=== PATIENT | female | born 1960 | race Caucasian/White ===

== ENCOUNTER 2020-02-23 08:41 | Outpatient (CLI) | payer OTHER, SELFPAY ==
--- NOTE | 2020-02-23 08:50 | MM_ITS ---
WS: [id number] Bilateral screening digital mammogram, 02/23/2020 Clinical Data: SCREENING Comparison: 01/17/2019, 12/27/2017, 11/16/2016, 10/03/2015, 07/19/2006. Findings: The breast parenchymal pattern shows fat replacement. No spiculated masses or clustered calcification s are seen. There are no secondary signs of carcinoma. MM/[place] [id number] Impression: 1. Negative bilateral mammogram unchanged. 2. Recommend annual screening mammograms. BIRADS: 1-Negative FOLLOW UP: 1 Year Follow-up The CAD lap checker was used.
== END 2020-02-23 08:42 | disposition home or self-care (01) ==
LOC: RADSHAW 08:47
PROVIDERS: Family Provider Family Medicine; PCP Family Medicine; Visit Provider Family Medicine
DX: Z12.31 Encounter for screening mammogram for malignant neoplasm of breast (principal)
CPT/HCPCS: 77067

== ENCOUNTER → 2020-04-09 13:45 | Outpatient (BNVA) | payer OTHER, SELFPAY | PROVIDERS: Family Provider Family Medicine; PCP Family Medicine; Referring Provider Family Medicine; Visit Provider Podiatrist Foot & Ankle Surgery | DX: M79.672 Pain in left foot (principal); M20.12 Hallux valgus (acquired), left foot; M21.42 Flat foot [pes planus] (acquired), left foot | CPT/HCPCS: 73630 ==

== ENCOUNTER → 2020-05-25 13:27 | Outpatient (BNVA) | payer OTHER, SELFPAY | PROVIDERS: Family Provider Family Medicine; PCP Family Medicine; Visit Provider Podiatrist Foot & Ankle Surgery | DX: M21.612 Bunion of left foot (principal); Z11.52 Encounter for screening for COVID-19 | CPT/HCPCS: 87635 ==

== ENCOUNTER 2020-05-31 07:18 | Day surgery (SDC) | payer OTHER, SELFPAY ==
[2020-05-30 15:20] VITALS: BMI 29.7
[2020-05-31] VITALS (12 sets, daily range): BP systolic 103–151; BP diastolic 54–94; PULSE 63–90; RESP 16–21; TEMP 36.2–36.8; O2SAT 92–100
--- NOTE | 2020-05-31 | SCC_ITS ---
Procedure Done: Lapidus bunionectomy, Raymond osteotomy and second hammertoe repair all left foot. CPT codes 43823, 67826 and 42893 22 seconds of fluoroscopic guidance, for a cumulative dose of .38 mGy, was provided to Dr. Alba by the radiology department. C-arm images of the LEFT foot were saved for the patient's permanent record. [facility]
[2020-05-31] MEDS: sodium chloride 0.9% 500 ML 999 ML IV (08:13)
--- NOTE | 2020-05-31 09:22 | W.PM.OPSUD ---
Surgery/Procedure H&P Update DATE OF PROCEDURE: May 31, 2020 DATE H&P PERFORMED: 05/03/20 H&P UPDATE INFORMATION: I have reviewed H&P completed within last 30 days, I have examined patient prior to procedure, No changes to prior documentation and H&P is in [facility] EMR on date indicated PREOP DIAGNOSIS: Bunion and second hammertoe left foot PLANNED PROCEDURE: Operation Date: 05/31/20 09:05 Proposed Procedures p Bunionectomy Lapidus M21.612 [id number](Left) - Ciro Alba DPM s Second Hammertoe Correction repair all left foot(Left) - Ciro Alba DPM
--- NOTE | 2020-05-31 12:08 | XR_ITS ---
WS: [id number] Left foot, 3 views, 05/31/2020 Clinical Data: post op Comparison: Left foot, 04/09/2020. Findings: The patient is had an osteotomy of the base left first metatarsal with a medial plate fixed with mult iple screws to the first cuneiform and base of the left first metatarsal. There is an osteotomy of th e left first proximal phalanx with a small plate fixed with screws. There is a fusion of the left sec ond toe with an orthopedic pin. XR/XR foot LT min 3V* [id number] Impression: Post surgery changes for correction of bunion.
--- NOTE | 2020-05-31 12:16 | SUR.PHASEI ---
PT AWAKE ALERT TALKATIVE, LT FOOT DRESSING AND BOOT D/I DISTAL TOE PINK WARM CAP REFILL LESS THAN 3 SECONDS. PT ON RA TAKING ICE CHIPS DENIES PAIN . X RAY HERE, REGULAR ICE BAG BEHIND LT KNEE.
[2020-05-31] MEDS: ondansetron 2 mg/ML SDV 2 mL 4 MG IVP (13:32)
[2020-05-31] MEDS: scopolamine 1.5 Patch 1 PATCH TRANSDERMA (13:35)
[2020-05-31] MEDS: metoclopramide 5 mg/mL SDV 2 mL 10 MG IVP ×2 (14:00→14:20)
--- NOTE | 2020-05-31 14:34 | ANES.PREANE2 ---
Pre-Anesthetic Assessment Pre-Anesthetic Assessment: Height/Weight: Height 1.68 m Weight 83.461 kg Temp Pulse Resp BP Pulse Ox 97.2 F L 80 18 126/72 93 05/31/20 13:00 05/31/20 13:00 05/31/20 13:00 05/31/20 13:00 05/31/20 13:00 Preop Diagnosis: Bunion and second hammertoe left foot Proposed Procedure: Operation Date: 05/31/20 09:05 Proposed Procedures p Bunionectomy Lapidus M21.612 [id number](Left) - Ciro Alba DPM s Second Hammertoe Correction repair all left foot(Left) - Ciro Alba DPM Was Beta Pelon taken within 24 hours: N/A Last intake: Intake Last Liquid Date 05/30/20 Last Liquid Time 21:00 Last Solid Date 05/30/20 Last Solid Time 16:00 Social: Social History: Tobacco and No alcohol Exam: Pre-Anes Outpt Exam: alert, oriented x 3 and regular rate & rhythm Airway: Submandibular: WNL Cervical ROM: WNL MP: 2 GI: GI: GERD Anesthetic Plan: ASA status: 2 Anesthesia: MAC Risk of > 500 ml blood loss (7ml/kg in children): No Meds/Allergies Current Medications: Current Medications Generic Name Dose Route Start Last Admin Trade Name Freq PRN Reason Stop Dose Admin Sodium Chloride 500 mls @ 999 mls /hr 05/31/20 07:15 05/31/20 08:13 Sodium Chloride 0.9% IV 999 mls/hr .Q31M PRN Administration HYPOTENSION Metoclopramide HCl 10 mg 05/31/20 07:15 05/31/20 14:20 Metoclopramide 5 Mg/Ml Sdv 2 Ml IVP 06/01/20 07:15 10 mg Q5M PRN Administration Nausea unrelieved by Zofran Ondansetron HCl 4 mg 05/31/20 07:15 05/31/20 13:32 Ondansetron 2 Mg /Ml Sdv 2 Ml IVP 4 mg Q15M PRN Administration Nausea/Vomiting P ACU PHASE II PFSH Anesthesia PFSH: Medical History GERD (gastroesophageal reflux disease) History of Bullard's palsy Hot flashes Family History Denies family history of Diabetes CAD (coronary artery disease) Clotting disorder Dementia Hyperlipidemia Psychiatric illness Chronic kidney disease (CKD) Suicide Anesthesia complication Bleeding disorder Family history of premature coronary artery disease Lung disease Cancer Hypertension Stroke Social History Smoking and tobacco status: former smoker Alcohol intake: current Alcohol intake frequency: few times a month Lives independently: Yes Household members: spouse Marital status: Life Partner Data Anesthesia Cardiac Studies: No Data to Display
--- NOTE | 2020-05-31 14:36 | ANE.PACU2 ---
Inpatient post-anesthesia follow up: Airway intact: Yes Vital signs: Temperature 97.2 F Pulse Rate 80 Respiratory Rate 18 Blood Pressure 126/72 Pulse Oximetry 93 Oxygen Delivery Me thod Room Air Oxygen Flow Rate 8 Fraction of Inspir ed Oxygen Hydration adequate: Yes Nausea and vomiting: No Pain level: 1 Mental status: Baseline
[2020-05-31] MEDS: oxyCODONE-APAP 10-325 mg Tablet 1 TAB PO (14:38)
--- NOTE | 2020-05-31 18:42 | PM.OP ---
Operative Report Date of procedure: May 31, 2020 Pre-op Diagnosis: Bunion and second hammertoe left foot Post-op diagnosis: same Procedure Done: Lapidus bunionectomy, Raymond osteotomy and second hammertoe repair all left foot. CPT codes 22187, 70524 and 62135 Implants: [place] 28 Lapidus plate, [place] 28 3.5 mm locking and nonlocking screws, [place] 2810 mm nitinol step-off stable, [place] 28 2.75 mm hammer tube 0 degree. 3-0 Vicryl, 4-0 Vicryl 4-0 nylon. Specimens removed/disposition: None Pathology: none sent Surgeon: Ciro Alba D.P.M. Food Selector: See intraop documentation Anesthesia: MAC Estimated blood loss: 10ml Tourniquet time: See [id number] documentation IV fluids: none Urine output: none Complications: none Findings: none Condition: stable Disposition: PACU Brief History: Patient is a pleasant 59-year-old female who complains of left bunion and left second hammertoe pain. She has had pain that has been progressive in nature and increased with activity such as walking and everyday activities especially while at work. She has significant pain at her bunion site that is debilitating and prevents her from enjoying everyday activities. She would like to discuss surgical treatment options and proceed with this at today's visit. I am recommending a Lapidus bunionectomy, Raymond osteotomy and second hammertoe repair of the left foot. Risks include pain, bleeding, numbness, infection, painful scar, chronic swelling, delayed union, malunion, nonunion, painful retained hardware, hardware failure, hardware irritation, damage to adjacent soft tissue structures, hallux varus, need for further surgical intervention. Also risks associated with anesthesia, DVT, PE, heart attack and stroke. Patient is interviewed preoperatively and answered all questions to her satisfaction. Informed consent is signed by myself and patient I initialed patient's left foot she wishes to proceed. Procedure: Under mild sedation the patient was brought to the operating room and placed on operating table in supine position. A timeout was performed. Anesthesia was administered by the anesthesia service. Local anesthesia injected by myself consisting of a left ankle block utilizing 0.5% Marcaine plain total of 20 cc. Well-padded pneumatic tourniquet applied to the left ankle. Left lower extremity was then scrubbed, prepped and draped utilizing normal aseptic technique. Left foot was examined a weighted with an Esmarch bandage and the tourniquet inflated to 250 mmHg. Attention was directed to the dorsal medial aspect of the left first metatarsal where a linear longitudinal incision was made medial and parallel to the extensor houses longus tendon at the level of the base of the first metatarsal this was approximately 7 cm in length. Dissection was carried down through subcu tissue and fat layer down to periosteum. Linear periosteal incision was made in the first metatarsal medial cuneiform joint was distracted with self-retaining distractor and denuded of articular surface at the distal aspect of the medial cuneiform and base of the first metatarsal. This was done with a sagittal saw and wafers were passed from the operative field. Subchondral drilling was performed utilizing a subchondral drill bit, but deformity was reduced with improved intermetatarsal angle as well as the rotated in the frontal plane this was temporally fixated and utilizing standard AO technique a [place] 28 Lapidus plate was utilized to fixate the arthrodesis site with excellent bony apposition and compression noted utilizing a combination of locking and nonlocking 3.5 mm [place] 28 screws. Incision site was flushed with copious amounts of sterile saline solution. Intraoperative fluoroscopy confirmed reduced intermetatarsal angle and improved sesamoid position and excellent placement of orthopedic hardware without violating surrounding/neighboring joints. Periosteum was reapproximated utilizing 2-0 Vicryl. Subcutaneous tissue closed utilizing 4-0 Vicryl and skin closed utilizing 4-0 nylon. Attention was then directed to the first interspace where a stab incision was made and a lateral release was carried out with a #15 blade. Medial incision was then performed to perform a silver procedure at the first metatarsal head this was transected and passed from the operative field, dissection was then carried down to the medial aspect of the hallux where an Raymond osteotomy was performed with a sagittal saw maintaining a lateral hinge and cortex this was then reduced and fixated utilizing a [place] 28 10 mm step-off staple with excellent bony apposition and compression noted at the Raymond osteotomy site and a more rectus hallux appreciated intraoperatively. Incision sites were flushed with copious amounts of sterile saline solution. First interspace incision closed utilizing 4-0 nylon. Medial capsule was debulked and closed utilizing 3-0 Vicryl in the subcutaneous closed utilizing 4-0 Vicryl and skin 4-0 nylon. Attention was then directed to the dorsal aspect of the left digit where a linear longitudinal incision made at the level of the proximal interphalangeal joint. Extensor tendon was transected and the head of the proximal phalanx and base of the intermediate phalanx were denuded of the articular surface. Utilizing director of business operations recommendations a [place] 28 2.75 mm hammer tube 0 degree was inserted and fixated with a K wire through the implant for additional stability. K wire was bent 90 degrees and a Trina ball was applied. Intraoperative fluoroscopy utilized to confirm a rectus second toe with excellent bony apposition and compression noted at the arthrodesis site. Incision site was flushed with saline solution. Extensor tendon reapproximated utilizing 4-0 Vicryl and skin reapproximated utilizing 4-0 nylon. Incision sites were then dressed with Adaptic, sterile 4 x 4, Kerlix and Shankar wrap. Boot was applied to the left lower extremity. Tourniquet was deflated and a prompt hyperemic response was noted to the distal digits of the left foot. Patient tolerated the procedure and anesthesia well and was transferred to the PACU with vital signs stable and vascular status intact. Following a period of postoperative monitoring she will be discharged home is to remain strict nonweightbearing I reemphasized this multiple times. She is to keep the cam boot on and her dressing clean dry and intact until follow-up visit. Was prescribed pain medication to be taken judiciously as needed for pain and myself a number should she have any postoperative complications or concerns she is to reach out to me.
== END 2020-05-31 15:10 | disposition home or self-care (01) ==
PROVIDERS: PCP Family Medicine; Visit Provider Podiatrist Foot & Ankle Surgery
PROC: (CPT 28297; principal; 2020-05-31 09:05)
PROC: (CPT 28285; 2020-05-31 09:05)
DX: M21.612 Bunion of left foot (principal); M20.42 Other hammer toe(s) (acquired), left foot; Z87.891 Personal history of nicotine dependence
CPT/HCPCS: 28285; 28297; 28298; 73630; 76000; 96374; 96375; C1713; C9290; J0690; J2250; J2370; J2405; J2704; J2765; J3010; J3490; J7040; L4361

== ENCOUNTER → 2020-06-13 13:11 | Outpatient (BNVA) | payer OTHER, SELFPAY | PROVIDERS: PCP Family Medicine; Visit Provider Podiatrist Foot & Ankle Surgery | DX: Z47.89 Encounter for other orthopedic aftercare (principal); M21.612 Bunion of left foot | CPT/HCPCS: 73630 ==

== ENCOUNTER → 2020-06-28 13:21 | Outpatient (BNVA) | payer OTHER, SELFPAY | PROVIDERS: PCP Family Medicine; Visit Provider Podiatrist Foot & Ankle Surgery | DX: Z48.89 Encounter for other specified surgical aftercare (principal); M21.612 Bunion of left foot | CPT/HCPCS: 73630 ==

== ENCOUNTER → 2020-07-12 13:10 | Outpatient (BNVA) | payer OTHER, SELFPAY | PROVIDERS: PCP Family Medicine; Visit Provider Podiatrist Foot & Ankle Surgery | DX: Z48.89 Encounter for other specified surgical aftercare (principal) | CPT/HCPCS: 73630 ==

== ENCOUNTER → 2020-07-29 10:20 | Outpatient (BNVA) | payer OTHER, SELFPAY | PROVIDERS: PCP Family Medicine; Visit Provider Podiatrist Foot & Ankle Surgery | DX: Z48.89 Encounter for other specified surgical aftercare (principal) | CPT/HCPCS: 73630 ==

== ENCOUNTER → 2020-08-12 13:06 | Outpatient (BNVA) | payer OTHER, SELFPAY | PROVIDERS: PCP Family Medicine; Visit Provider Podiatrist Foot & Ankle Surgery | DX: Z48.89 Encounter for other specified surgical aftercare (principal); M85.872 Other specified disorders of bone density and structure, left ankle and foot; R60.0 Localized edema | CPT/HCPCS: 73630 ==

== ENCOUNTER → 2020-08-30 12:38 | Outpatient (BNVA) | payer OTHER, SELFPAY | PROVIDERS: PCP Family Medicine; Visit Provider Podiatrist Foot & Ankle Surgery | DX: Z48.89 Encounter for other specified surgical aftercare (principal); Z98.890 Other specified postprocedural states | CPT/HCPCS: 73630 ==

== ENCOUNTER → 2020-10-04 13:12 | Outpatient (BNVA) | payer OTHER, SELFPAY | PROVIDERS: PCP Family Medicine; Visit Provider Podiatrist Foot & Ankle Surgery | DX: Z48.89 Encounter for other specified surgical aftercare (principal); Z98.890 Other specified postprocedural states; M21.612 Bunion of left foot | CPT/HCPCS: 73630 ==

== ENCOUNTER → 2020-11-05 13:31 | Outpatient (BNVA) | payer OTHER, SELFPAY | PROVIDERS: PCP Family Medicine; Visit Provider Podiatrist Foot & Ankle Surgery | DX: Z48.89 Encounter for other specified surgical aftercare (principal); Z98.890 Other specified postprocedural states; M21.612 Bunion of left foot | CPT/HCPCS: 73630 ==

== ENCOUNTER 2020-11-05 13:57 | Outpatient (CLI) | payer OTHER, SELFPAY | END 2020-11-05 13:58 | disposition home or self-care (01) | LOC: SPT 13:58 | PROVIDERS: PCP Family Medicine; Visit Provider Podiatrist Foot & Ankle Surgery | DX: Z98.890 Other specified postprocedural states (principal) | CPT/HCPCS: L3030 ==

== ENCOUNTER → 2020-12-10 13:15 | Outpatient (BNVA) | payer OTHER, SELFPAY | PROVIDERS: PCP Family Medicine; Visit Provider Podiatrist Foot & Ankle Surgery | DX: M79.672 Pain in left foot (principal); Z48.89 Encounter for other specified surgical aftercare; Z98.890 Other specified postprocedural states; M21.612 Bunion of left foot | CPT/HCPCS: 73630 ==

== ENCOUNTER → 2021-01-14 13:59 | Outpatient (BNVA) | payer OTHER, SELFPAY | PROVIDERS: PCP Family Medicine; Visit Provider Podiatrist Foot & Ankle Surgery | DX: Z98.890 Other specified postprocedural states (principal) | CPT/HCPCS: 73630 ==

== ENCOUNTER → 2021-02-25 13:44 | Outpatient (BNVA) | payer OTHER, SELFPAY | PROVIDERS: PCP Family Medicine; Visit Provider Podiatrist Foot & Ankle Surgery | DX: Z98.890 Other specified postprocedural states (principal); M21.612 Bunion of left foot; L60.3 Nail dystrophy; Z48.89 Encounter for other specified surgical aftercare | CPT/HCPCS: 73630 ==

== ENCOUNTER → 2021-03-03 10:54 | Outpatient (BNVA) | payer OTHER, SELFPAY | PROVIDERS: PCP Family Medicine; Visit Provider Podiatrist Foot & Ankle Surgery | DX: Z01.818 Encounter for other preprocedural examination (principal); Z20.822 Contact with and (suspected) exposure to COVID-19 | CPT/HCPCS: 87635 ==

== ENCOUNTER 2021-03-07 05:33 | Day surgery (SDC) | payer OTHER, SELFPAY ==
[2021-03-06 16:36] VITALS: BMI 29.7
[2021-03-07] VITALS (8 sets, daily range): BP systolic 92–153; BP diastolic 62–106; PULSE 50–60; RESP 16–18; TEMP 36.2–36.5; O2SAT 90–97
--- NOTE | 2021-03-07 | SCC_ITS ---
Procedure Done: Deep Hardware Removal and Resection of Nonunion Left Foot [id number] 9 seconds of fluoroscopic guidance, for a cumulative dose of 0.12 mGy, was provided to Dr. Alba by the radiology department. C-arm images of the LEFT foot were saved for the patient's permanent record. [facility]
--- NOTE | 2021-03-07 06:11 | P.HPUD_ITS ---
Surgery/Procedure H&P Update DATE OF PROCEDURE: March 07, 2021 DATE H&P PERFORMED: 03/07/21 H&P UPDATE INFORMATION: I have reviewed H&P completed within last 30 days, I have examined patient prior to procedure, No changes to prior documentation and H&[place] is in [facility] [place] on date indicated PREOP DIAGNOSIS: Painful retained hardware and nonunion left foot PLANNED PROCEDURE: Operation Date: 03/07/21 07:00 Proposed Procedures p Deep Hardware Removal and Resection of Nonunion Left Foot [id number] M96.0 M79.672(Left) - Ciro Alba DPM
[2021-03-07] MEDS: scopolamine 1.5 Patch 1 PATCH TRANSDERMA (06:17)
[2021-03-07] MEDS: sodium chloride 0.9% 1,000 ML 30 ML IV (06:37)
--- NOTE | 2021-03-07 06:44 | PM.OPSURHP ---
Providers/Chief Complaint Primary Care Provider: Christofer Granado DO Chief Complaint: Nonunion, Pain in Left Foot History of Present Illness Michelle Johnson is a 60 year old female Established 60 year old female patient here at clinic for post operative care. Patient had a Lapidus bunionectomy. DOS . Postoperative course has been complicated by delayed bony healing and dorsal angulation of the first metatarsal. Patient received her bone stimulator on 12/28/20. She is here for preop H&P and proceed with surgery has been n.p.o. since midnight. Review of Systems General: Reports: 10 or more systems reviewed and unremarkable except in HPI and below Const: Denies: fever(s) or chills Eyes: Denies: change in vision Card: Denies: chest pain or palpitations Resp: Denies: dyspnea or productive cough GI: Denies: abdominal pain, nausea or vomiting : Denies: flank pain Musc: Reports: extremity pain, extremity swelling and deformity Skin/Breast: Reports: surgical incision; Denies: rash Neuro: Denies: numbness in extremities, sensory changes or frequent falls Psych: Denies: suicidal ideation Sg/Lymph: Denies: easy bruising Medications/Allergies Home Medications Medication Instructions Recorded Confirmed Last Taken Type fluoxetine 20 mg capsule 20 mg PO DAILY 04/09/20 03/06/21 05/31/20 06:00 History naproxen 375 mg tablet 375 mg PO DAILY PRN 04/09/20 03/07/21 03/06/21 History Centrum Silver Women 1 tab PO DAILY 05/30/20 03/06/21 Unknown History Probiotic 1 cap PO DAILY 05/30/20 03/06/21 Unknown History cholecalciferol (vitamin D3) 50 mcg PO DAILY 05/30/20 03/06/21 Unknown History [Vitamin D3] doxylamine succinate 25 mg PO BEDTIME 05/30/20 03/06/21 Unknown History esomeprazole magnesium [Nexium] 20 mg PO DAILY 05/30/20 03/07/21 03/07/21 History lysine 500 mg PO DAILY 05/30/20 03/06/21 Unknown History melatonin 5 mg PO DAILY 05/30/20 03/06/21 Unknown History ibuprofen 800 mg tablet 800 mg PO TID PRN #30 tab 06/28/20 03/06/21 Unknown Rx Custom Orthotics #1 ea 08/12/20 02/25/21 Unknown Rx Bone Stimulator #1 ea 08/30/20 02/25/21 Unknown Rx tramadol 50 mg tablet 50 mg PO Q4H PRN 7 Days #42 tab 01/14/21 03/06/21 Unknown Rx calcium 500 mg PO DAILY 03/06/21 03/06/21 Unknown History Allergies Allergy/AdvReac Type Severity Reaction Status Date / Time No Known Allergies Allergy Verified 02/25/21 13:42 PFSH PFSH: Medical History GERD (gastroesophageal reflux disease) History of Bullard's palsy Hot flashes Family History Denies family history of Diabetes CAD (coronary artery disease) Clotting disorder Dementia Hyperlipidemia Psychiatric illness Chronic kidney disease (CKD) Suicide Anesthesia complication Bleeding disorder Family history of premature coronary artery disease Lung disease Cancer Hypertension Stroke Social History Alcohol intake: current Alcohol intake frequency: few times a month Lives independently: Yes Household members: spouse Marital status: Life Partner Vital Signs Vitals Signs: Last Vital Signs Temp 97.7 F 03/07/21 05:57 Pulse 60 03/07/21 05:57 Resp 18 03/07/21 05:57 BP 153/71 03/07/21 05:57 Pulse Ox 97 03/07/21 05:57 Weight: Weight last 48 hrs Weight 184 lb Physical Exam Narrative: EXAM NARRATIVE: Patient is alert and oriented ?3 and in no acute distress. The following is a focused left lower extremity exam. VASCULAR: Dorsalis pedis and posterior tibial arteries palpable +2. Capillary refill time less than 3 seconds to the distal hallux bilaterally. Calf is supple and nontender proximally and distally. Edema at the left midfoot. NEUROLOGICAL: Protective sensation intact to light touch. DERMATOLOGICAL: Well healed cicatrix left foot. Edema to left foot. No dehiscence or erythema. MUSCULOSKELETAL: Tenderness at the Lapidus arthrodesis site. Muscle strength 5 out of 5 in all 3 cardinal planes to the left foot and ankle. No pain with posterior calf squeeze. CARDIOVASCULAR: S1, S2, normal rate, normal rhythm. Dorsalis pedis and posterior tibial arteries palpable. LUNGS: Clear to auscltation, no use of acessory muscles, no crackles or wheezes. A&P Assessment and plan (1) Left foot pain: Status: Acute (2) Nonunion of joint fusion: Status: Acute (3) Bunion, left: Status: Acute Reviewed x-ray findings with the patient at length, there is a nonunion at the left Lapidus site. She has utilized a bone stimulator has been used since 12/28/20. Wearing supportive shoes and custom functional orthotics. I discussed the risk for nonunion of this type of a procedure is approximately 10%. Recommending a revision as she is symptomatic with her nonunion has pain with increased activity. This would entail hardware removal, resection of nonunion, would implement Ortho Biologics and revisional plate with locking screws. This is something she potentially would like to have done next Wednesday, March 07, 2021. Covid screening negative. Patient has been n.p.o. since midnight. Wishes to proceed. Coding Level of Care Code Acute Pastry Cook Apprentice for Suha Wall Diagnoses Left foot pain M79.672 Nonunion of joint fusion Bunion, left M21.612
--- NOTE | 2021-03-07 07:08 | ANES.PREANE2 ---
Pre-Anesthetic Assessment Pre-Anesthetic Assessment: Height/Weight: Height 1.68 m Weight 83.461 kg Temp Pulse Resp BP Pulse Ox 97.7 F 60 18 153/71 97 03/07/21 05:57 03/07/21 05:57 03/07/21 05:57 03/07/21 05:57 03/07/21 05:57 Preop Diagnosis: Painful retained hardware and nonunion left foot Proposed Procedure: Operation Date: 03/07/21 07:00 Proposed Procedures p Deep Hardware Removal and Resection of Nonunion Left Foot [id number] M96.0 M79.672(Left) - Ciro Alba DPM Was Beta Pelon taken within 24 hours: N/A Was Clonidine taken within 24 hours: N/A Last intake: Intake Last Liquid Date 03/06/21 Last Liquid Time 17:00 Last Solid Date 03/06/21 Last Solid Time 15:00 Social: Social History: No alcohol and No tobacco Exam: Pre-Anes Outpt Exam: alert, oriented x 3, clear to auscultation bilaterally and regular rate & rhythm Airway: Submandibular: WNL Cervical ROM: WNL MP: 2 Dentition: Full GI: GI: GERD Neuropsych: Neuropsych: Anxiety and Depression Anesthetic Plan: ASA status: 2 Anesthesia: Choice Other: PONV Risk of > 500 ml blood loss (7ml/kg in children): No Meds/Allergies Current Medications: Current Medications Generic Name Dose Route Start Last Admin Trade Name Freq PRN Reason Stop Dose Admin Sodium Chloride 1,000 mls @ 30 ml s/hr 03/07/21 05:45 03/07/21 06:37 Sodium Chloride 0.9% IV 03/08/21 05:44 30 mls/hr .Q24H SHANTELLE Administration PFSH Anesthesia PFSH: Medical History GERD (gastroesophageal reflux disease) History of Blulard's palsy Hot flashes Family History Denies family history of Diabetes CAD (coronary artery disease) Clotting disorder Dementia Hyperlipidemia Psychiatric illness Chronic kidney disease (CKD) Suicide Anesthesia complication Bleeding disorder Family history of premature coronary artery disease Lung disease Cancer Hypertension Stroke Social History Alcohol intake: current Alcohol intake frequency: few times a month Lives independently: Yes Household members: spouse Marital status: Life Partner Data Anesthesia Cardiac Studies: No Data to Display
--- NOTE | 2021-03-07 08:45 | P.OP_ITS ---
Operative Report Date of procedure: March 07, 2021 Pre-op Diagnosis: Painful retained hardware and nonunion left foot Post-op diagnosis: same Procedure Done: Deep Hardware Removal and Resection of Nonunion Left Foot [id number] Implants: [place] 28 locking Lapidus plate with 3.5 millimeter screws, [place] 28 4 mm headless screw, Exparel, 3-0 Vicryl, 4-0 Vicryl and 4-0 nylon. Specimens removed/disposition: [place] 28 locking plate and a total of 5 screws Pathology: none sent Surgeon: Ciro Alba D.P.M. 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 Patient was compliant with weightbearing status postoperatively, went on to get a bone stimulator still failed to have osseous healing. Required depart removal and resection of nonunion. Patient is agreeable wishes to proceed. Covid screening negative. N.p.o. since midnight. Risks include pain, bleeding, numbness, infection, hardware failure, delayed union, malunion, nonunion, need for further surgical intervention. Procedure: Under mild sedation the patient was brought to the operating room and remained on the gurney in supine position. A timeout was performed. Anesthesia was administered by the anesthesia service. Local anesthesia injected by myself total of 30 cc of 0.5% Marcaine plain and proximal left Estrella block fashion. Well-padded pneumatic tourniquet applied to the left ankle. Left lower extremity was scrubbed, prepped and draped utilizing normal aseptic technique. Left foot was wrapped with an Esmarch bandage and a tourniquet inflated to 250 mmHg. Attention was directed to the dorsal medial aspect of the left foot where a linear longitudinal incision was made medial and parallel to the extensor hallucis longus tendon. Dissection was carried down through skin and subcutaneous tissue down to the level periosteum utilizing accommodation of blunt and sharp technique. Care was taken to retract and preserve neurovascular and tendinous structures. All bleeders were ligated and cauterized as necessary. Locking plate and a total of 5 screws were removed and passed from operative field. Fibrous nonunion was appreciated at the Lapidus site this was resected with a osteotome, oscillating saw and curettage. Patient had good bone density overall did not appreciate any osteopenia. Incision was flushed with copious amounts of sterile skin solution followed by subchondral drilling with fenestrating drill bit and Steinmann pin the arthrodesis site was then packed with 2.5 cc of Ortho Biologics and fixated with a [place] 28 4.0 mm headless screw from dorsal distal to proximal plantar with excellent bony apposition and compression followed by application of locking plate medially with 2 screws proximal and 2 distal with excellent bony apposition and compression noted. Incision was flushed with saline solution. Fluoroscopy confirmed tight arthrodesis site and maintain alignment of the intermetatarsal angle being reduced compared to preoperative evaluation. Incision was infiltrated with Exparel. Incision was then closed in a layered fashion with 3-0 Vicryl at periosteum, 4-0 Vicryl at subcutaneous tissue and 4-0 nylon at skin. Incision was then dressed with Adaptic, sterile 4 x 4, Kerlix, Shankar wrap and cam boot was applied. Tourniquet was then deflated and a prompt hyperemic response was noted to the left foot. Patient tolerated the procedure and anesthesia well and was transferred to the PACU with vital signs stable vascular status intact. Following a period of postoperative monitoring she will be discharged home will remain strict nonweightbearing to the left lower extremity at all times and elevate her left foot while at rest.
--- NOTE | 2021-03-07 08:56 | XR_ITS ---
WS: [id number] XR foot LT min 3V* [id number] REASON FOR EXAM: post op FINDINGS: Plate and screw arthrodesis of the tarsal metatarsal joint of the great toe. Plate and screw fixation of osteotomy in the mid proximal phalanx of the left great toe. There is also an arthrodesis of the PIP joint of the second toe. Prostheses and associated bony structure remain in proper position and alignment unchanged compared t o 02/25/2021 No new findings. XR/XR foot LT min 3V* [id number] IMPRESSION: Stable postoperative left foot.
[2021-03-07] MEDS: oxyCODONE-APAP 10-325 mg Tablet 1 TAB PO (10:03)
--- NOTE | 2021-03-07 13:16 | ANE.PACU2 ---
Inpatient post-anesthesia follow up: Airway intact: Yes Vital signs: Temperature 97.6 F Pulse Rate 50 Respiratory Rate 16 Blood Pressure 124/106 Pulse Oximetry 94 Oxygen Delivery Me thod Room Air Oxygen Flow Rate 7 Fraction of Inspir ed Oxygen Hydration adequate: Yes Nausea and vomiting: No Pain level: 2 Mental status: Baseline
== END 2021-03-07 10:20 | disposition home or self-care (01) ==
PROVIDERS: PCP Family Medicine; Visit Provider Podiatrist Foot & Ankle Surgery
PROC: (CPT 20680; principal; 2021-03-07 07:00)
DX: T84.84XA Pain due to internal orthopedic prosthetic devices, implants and grafts, initial encounter (principal); M96.0 Pseudarthrosis after fusion or arthrodesis; M21.612 Bunion of left foot; K21.9 Gastro-esophageal reflux disease without esophagitis
CPT/HCPCS: 20680; 28322; 73630; 76000; C1713; C9290; J0690; J2704; J3010; J3490; J7030

== ENCOUNTER → 2021-03-20 14:57 | Outpatient (BNVA) | payer OTHER, SELFPAY | PROVIDERS: PCP Family Medicine; Visit Provider Podiatrist Foot & Ankle Surgery | DX: Z98.890 Other specified postprocedural states (principal) | CPT/HCPCS: 73630 ==

== ENCOUNTER → 2021-04-15 13:19 | Outpatient (BNVA) | payer OTHER, SELFPAY | PROVIDERS: PCP Family Medicine; Visit Provider Podiatrist Foot & Ankle Surgery | DX: Z98.890 Other specified postprocedural states (principal); Z48.89 Encounter for other specified surgical aftercare | CPT/HCPCS: 73630 ==

== ENCOUNTER 2021-04-28 08:37 | Emergency (ER) | payer OTHER, SELFPAY ==
[2021-04-28 08:45] VITALS: BP 121/77; PULSE 91; RESP 16; TEMP 36.9; O2SAT 95; BMI 29.7
--- NOTE | 2021-04-28 09:00 | XR_ITS ---
WS: [id number] XR foot LT min 3V* [id number] REASON FOR EXAM: fall injury, pain in foot FINDINGS: Mildly decreased bone density. No acute fracture or dislocation. Stable appearing postsurgical arthrodesis and osteotomy changes in the first and second toes. Bony and joint structure of the left midfoot and hindfoot are intact. XR/XR foot LT min 3V* [id number] IMPRESSION: Postsurgical changes with no acute abnormality.
--- NOTE | 2021-04-28 09:00 | XR_ITS ---
WS: [id number] XR hip LT 2-3V wo/w pel* [id number] REASON FOR EXAM: fall injury FINDINGS: No fracture identified. Mild changes of osteoarthritis with subchondral sclerosis and osteophytosis of the acetabulum. No soft tissue abnormality. XR/XR hip LT 2-3V wo/w pel* [id number] IMPRESSION: No acute abnormality.
--- NOTE | 2021-04-28 09:00 | XR_ITS ---
WS: [id number] XR knee LT 3V* [id number] REASON FOR EXAM: fall injury, pain in knee FINDINGS: No fracture identified. Mild changes of osteoarthritis in the left knee with narrowing of the lateral and patellofemoral join t spaces with small marginal osteophytes. No soft tissue abnormality. XR/XR knee LT 3V* [id number] IMPRESSION: No acute abnormality.
--- NOTE | 2021-04-28 09:02 | ED_ITS ---
HPI - Fall General: Chief Complaint: Fall Stated Complaint: fall, left foot and knee pain, left hip pain Time Seen by Provider: 04/28/21 08:50 History of Present Illness: Patient is a 60-year-old female who comes to the ED with left leg pain after a fall. Patient is an employee here at [employer] was at work when she had fall. 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 Denies any head trauma or loss of consciousness. Patient's left foot is currently in a boot and healing from a previous foot fracture. Since fall she is having pain in the midfoot left foot, left knee and left hip pain. She has some Vicodin at home that she took right before coming to the ED. She does not currently want anything for pain here in the ED. Patient is able to ambulate on left leg and says most of her pain is in her left hip. Associated symptoms-after fall: Denies abdominal pain, chest pain, headache(s), hematuria or neck pain Review of Systems Const: Denies: fever(s), chills or fatigue Eyes: Denies: change in vision or eye discomfort ENMT: Denies: throat pain, odynophagia, nasal discharge or nasal congestion Card: Denies: chest pain, palpitations, edema, swelling of feet/ankles, dyspnea on exertion or orthopnea Resp: Denies: dyspnea, productive cough or non-productive cough GI: Denies: abdominal pain, nausea, vomiting, diarrhea, constipation or hematochezia : Denies: flank pain, dysuria or hematuria Musc: Reports: extremity pain (Left hip, left knee and left foot); Denies: neck pain, back pain or extremity swelling Skin/Breast: Denies: rash or new lesions Neuro: Denies: headache(s) PFS ED PFSH: Medical History GERD (gastroesophageal reflux disease) History of Bullard's palsy Hot flashes Family History Denies family history of Diabetes CAD (coronary artery disease) Clotting disorder Dementia Hyperlipidemia Psychiatric illness Chronic kidney disease (CKD) Suicide Anesthesia complication Bleeding disorder Family history of premature coronary artery disease Lung disease Cancer Hypertension Stroke Social History Smoking and tobacco status: never smoked Alcohol intake: current Alcohol intake frequency: few times a month Lives independently: Yes Household members: spouse Marital status: Life Partner Physical Exam Const: COMMON NORMALS: no acute distress, patient oriented x3, healthy appearing and alert GENERAL APPEARANCE: cooperative and comfortable HENMT: COMMON NORMALS: normocephalic HEAD & SCALP: normocephalic MOUTH: Normal oral and palatal mucosa present THROAT: posterior oropharynx normal and uvula midline Neck/C-Spine: COMMON NORMALS: supple GENERAL: Yes normal visual inspection Resp: COMMON NORMALS: normal respiratory effort, No retractions, No use of accessory muscles and clear to auscultation bilaterally AUSCULTATION: clear to auscultation bilaterally Cardio: COMMON NORMALS: regular rate, regular rhythm, S1 normal heart sound present, S2 normal heart sound present, No gallops present (Cardio), No clicks present (Cardio), No murmurs present (Cardio) and Peripheral pulses 2+ throughout RATE: regular rate RHYTHM: regular rhythm HEART SOUNDS: S1 normal heart sound present and S2 normal heart sound present PERIPHERAL PULSES: Peripheral pulses 2+ throughout GI: COMMON NORMALS: Normal to inspection, nondistended, normoactive bowel sounds present, Soft to palpation, non-tender and no masses PALPATION: Yes Soft to palpation : COMMON NORMALS: Yes no CVA tenderness BLADDER/KIDNEY EXAM: Yes no CVA tenderness Back/Pelvis: COMMON NORMALS: no CVA tenderness Extremity: GENERAL: Yes normal exam except as noted LEFT LOWER EXTREMITY: Yes hip joint Left hip: Yes inspection (No signs of any deformity.), Yes palpation (Mild tenderness over greater trochanter of femur), Yes ROM (Limited due to pain) and Yes neurovascular exam (Intact), Yes knee joint Left knee: Yes inspection (No visible deformity or swelling noted.), Yes palpation (Tenderness over patella), Yes ROM (Full range of motion) and Yes neurovascular exam (Neurovascular intact.) and Yes foot & digits Left foot and digits: Yes inspection (Patient currently in boot) Neuro: COMMON NORMALS: patient oriented x3 and moves all extremities SENSORIUM/ORIENTATION: Yes alert Skin: GENERAL SKIN EXAM: dry skin Course Vital Signs: Vital signs: Vital Signs Temperature 98.4 F 04/28/21 08:45 Pulse Rate 91 04/28/21 08:45 Respiratory Rate 16 04/28/21 08:45 Blood Pressure 121/77 04/28/21 08:45 Pulse Oximetry 95 04/28/21 08:45 MDM - Fall Medical Decision Making Patient is a 60-year-old female comes to the ED with left leg pain after fall. Patient is having pain in her left knee left foot and left hip. Patient is cu rrently in a left foot boot due to a midfoot fracture recently. Denies any head trauma or loss of consciousness. Vital stable. Exam is benign. X-ray is of left foot, left knee and left hip showed no acute fractures or findings. Patient was diagnosed with left leg injury and discharged home. She was told to follow-up with her PCP in 7 to 10 days for reevaluation. Return to ED precautions given. Patient understood and agree with plan. Lab Data Radiology Impressions Foot X-Ray 04/28/21 09:00 IMPRESSION: Postsurgical changes with no acute abnormality. Hip/Pelvis X-Ray 04/28/21 09:00 IMPRESSION: No acute abnormality. Knee X-Ray 04/28/21 09:00 IMPRESSION: No acute abnormality. Discharge Plan Discharge Patient Disposition: Home Clinical Impression: Left leg injury Qualifiers: Encounter type: initial encounter Qualified Code(s): S89.92XA - Unspecified injury of left lower leg, initial encounter Condition: Stable Prescriptions: No Action fluoxetine [Prozac] 20 mg capsule 20 mg PO DAILY 0RF naproxen 375 mg tablet 375 mg PO DAILY PRN (Reason: Pain) 0RF (DME) Custom Orthotics See Rx Instructions .Route .MEDSUPPLY Qty: 1 0RF Rx Instructions: As directed (DME) Bone Stimulator See Rx Instructions .Route .MEDSUPPLY Qty: 1 0RF Rx Instructions: As directed tramadol 50 mg tablet 50 mg PO Q4H PRN (Reason: pain) 7 Days Qty: 42 0RF hydrocodone-acetaminophen 10-325 mg tablet 1 tab PO Q6H PRN (Reason: pain) 7 Days Qty: 28 0RF ibuprofen 800 mg tablet 800 mg PO TID PRN (Reason: pain) Qty: 30 2RF tramadol [Ultram] 50 mg tablet 50 mg PO Q6H PRN (Reason: pain) 7 Days Qty: 28 0RF hydrocodone-acetaminophen 5-325 mg tablet 1 tab PO Q6H PRN (Reason: pain) 7 Days Qty: 28 0RF lysine 500 mg Capsule 500 mg PO DAILY 0RF doxylamine succinate 25 mg Tablet 25 mg PO BEDTIME 0RF esomeprazole magnesium [Nexium] 20 mg Capsule,Delayed Release(Dr/Ec) 20 mg PO DAILY 0RF melatonin 5 mg Tablet 5 mg PO DAILY 0RF cholecalciferol (vitamin D3) [Vitamin D3] 50 mcg (2,000 unit) Capsule 50 mcg PO DAILY 0RF Centrum Silver Women 8 mg iron-400 mcg-300 mcg Tablet 1 tab PO DAILY 0RF Probiotic 100 billion cell Capsule 1 cap PO DAILY 0RF calcium 500 mg Tablet 500 mg PO DAILY 0RF Discharge Orders: Discharge ED (Routine); Ordered 04/28/21 Ordered By: Zechariah Bauer Referrals: Christofer Granado, [Primary Care Provider] - Discharge Diet: Regular Discharge Activity: Increase activity as tolerated Activity Restrictions/Additional Instructions: Follow-up with medical provider as directed in 7-10 days. Rest, ice and elevate left leg for the next couple days to help with symptoms. You can use crutches as well to minimize weightbearing for the next 2 to 3 days as needed. Take [id number] Tylenol or ibuprofen. You can also take your previously prescribed hydrocodone for pain. Return to the ER or your medical provider if condition worsens. Please read and understand discharge instructions. Thank you for choosing [facility] for your healthcare needs today. Please realize this is an emergency room and that we are providing you with a medical screening exam and this may not be complete and all inclusive of all the testing and or work up that you may need to determine your ailment or severity of your illness. It is very important that you follow up as instructed or that you return to the Emergency Department should you have concerns or if your condition changes or worsens in any way. Coding Level of Care Code ED Instrumentation And Controls Technician for Suha Wall Exam Comprehensive
== END 2021-04-28 11:20 | disposition home or self-care (01) ==
PROVIDERS: Emergency Provider Physician Assistant; PCP Family Medicine
DX: S89.92XA Unspecified injury of left lower leg, initial encounter (principal); W01.0XXA Fall on same level from slipping, tripping and stumbling without subsequent striking against object, initial encounter; Y92.239 Unspecified place in hospital as the place of occurrence of the external cause; Y99.0 Civilian activity done for income or pay
CPT/HCPCS: 73502; 73562; 73630; 99281

== ENCOUNTER → 2021-05-06 13:01 | Outpatient (BNVA) | payer SELFPAY | PROVIDERS: PCP Family Medicine; Visit Provider Podiatrist Foot & Ankle Surgery | DX: Z48.89 Encounter for other specified surgical aftercare (principal); Z98.890 Other specified postprocedural states | CPT/HCPCS: 73630 ==

== ENCOUNTER → 2021-06-03 12:47 | Outpatient (BNVA) | payer OTHER, SELFPAY | PROVIDERS: PCP Family Medicine; Visit Provider Podiatrist Foot & Ankle Surgery | DX: M79.672 Pain in left foot (principal); Z98.890 Other specified postprocedural states; Z51.89 Encounter for other specified aftercare; Z98.1 Arthrodesis status; Z96.698 Presence of other orthopedic joint implants | CPT/HCPCS: 73630 ==

== ENCOUNTER → 2021-07-08 13:12 | Outpatient (BNVA) | payer OTHER, SELFPAY | PROVIDERS: PCP Family Medicine; Visit Provider Podiatrist Foot & Ankle Surgery | DX: Z48.89 Encounter for other specified surgical aftercare (principal) | CPT/HCPCS: 73630 ==

== ENCOUNTER 2021-08-05 09:05 | Outpatient (CLI) | payer OTHER, SELFPAY ==
--- NOTE | 2021-08-05 09:15 | MM_ITS ---
WS: [id number] BILATERAL SCREENING DIGITAL BREAST TOMOSYNTHESIS MAMMOGRAM WITH CAD HISTORY: SCREENING COMPARISON: 02/23/2020, 01/17/2019 Bilateral CC and MLO views with tomosynthesis and synthetic mammography submitted. Computer aided det ection analyzed. Breast composition: There are scattered areas of fibroglandular density. No suspicious masses, microc alcifications or architectural distortion. MM/[place] [id number] IMPRESSION: BI-RADS: 1-Negative FOLLOW UP: 1 Year Follow-up
== END 2021-08-05 09:06 | disposition home or self-care (01) ==
LOC: RAD 09:08
PROVIDERS: PCP Family Medicine; Visit Provider Family Medicine
DX: Z12.31 Encounter for screening mammogram for malignant neoplasm of breast (principal)
CPT/HCPCS: 77063; 77067

== ENCOUNTER → 2021-08-12 15:30 | Outpatient (BNVA) | payer OTHER, SELFPAY | PROVIDERS: PCP Family Medicine; Visit Provider Podiatrist Foot & Ankle Surgery | DX: Z48.89 Encounter for other specified surgical aftercare (principal); M79.672 Pain in left foot; M85.872 Other specified disorders of bone density and structure, left ankle and foot; M21.42 Flat foot [pes planus] (acquired), left foot | CPT/HCPCS: 73630 ==

== ENCOUNTER → 2021-09-17 14:18 | Outpatient (BNVA) | payer OTHER, SELFPAY | PROVIDERS: PCP Family Medicine; Visit Provider Podiatrist Foot & Ankle Surgery | DX: M79.672 Pain in left foot (principal) | CPT/HCPCS: 73630 ==

== ENCOUNTER → 2021-11-11 13:40 | Outpatient (BNVA) | payer OTHER, SELFPAY | PROVIDERS: PCP Family Medicine; Visit Provider Podiatrist Foot & Ankle Surgery | DX: Z48.89 Encounter for other specified surgical aftercare (principal) | CPT/HCPCS: 73630 ==

== ENCOUNTER → 2022-02-03 14:00 | Outpatient (BNVA) | payer OTHER, SELFPAY | PROVIDERS: Visit Provider Podiatrist Foot & Ankle Surgery | DX: L60.3 Nail dystrophy (principal); M21.612 Bunion of left foot; Z48.89 Encounter for other specified surgical aftercare | CPT/HCPCS: 73630 ==

== ENCOUNTER → 2023-12-07 13:16 | Outpatient (BNVA) | payer MEDICARE, OTHER, SELFPAY | PROVIDERS: PCP Family Medicine; Visit Provider Family Medicine | DX: Z00.00 Encounter for general adult medical examination without abnormal findings (principal) | CPT/HCPCS: 80053; 80061 ==